=== PATIENT | male | born 1960 | race Two or more races ===

== ENCOUNTER → 2025-02-02 | Outpatient (CLI) | payer OTHER, SELFPAY ==
--- NOTE | 2025-02-02 14:17 | RAD_ITS ---
PROCEDURE: KNEE 4 OR MORE VIEWS 02/02/2025 REASON FOR EXAM: PAIN, CONCERN FOR GOUT TECHNIQUE: 4 view(s) of the left knee COMPARISON: None available FINDINGS: Bones: No acute fracture or dislocation. Joints: Joint spaces are preserved. Effusion: None Soft tissues: No overlying soft tissue swelling Other: Vascular calcification. RAD/Knee 4 or More Views IMPRESSION: *No acute osseous abnormality. *Small suprapatellar joint effusion. Reading Location: [facility]
--- NOTE | 2025-02-02 14:17 | RAD_ITS ---
PROCEDURE: KNEE 4 OR MORE VIEWS 02/02/2025 REASON FOR EXAM: PAIN, CONCERN FOR GOUT TECHNIQUE: Four views of the right knee COMPARISON: None available FINDINGS: Bones: No acute displaced fracture or dislocation. Joints: Joint spaces are preserved. Effusion: No significant joint effusion. Soft tissues: None Other: Vascular calcifications. RAD/Knee 4 or More Views IMPRESSION: No acute osseous abnormality. Reading Location: [id number]
== END | disposition home or self-care (01) ==
LOC: MTRAD 14:17
PROVIDERS: PCP Family Medicine; Referring Provider Family Medicine; Visit Provider Family Medicine
DX: M25.561 Pain in right knee (principal); M25.562 Pain in left knee; M10.9 Gout, unspecified
CPT/HCPCS: 73564